=== PATIENT | male | born 1955 ===

== ENCOUNTER 2018-03-08 12:47 | Emergency (ER) | payer MEDICAID, OTHER ==
--- NOTE | 2018-03-08 13:51 | NUR ---
Attempted to call pt to rm and people in waiting rm informed this nurse the pt had left.
== END 2018-03-08 13:51 | disposition left against medical advice (07) ==
LOC: ER 12:49
DX: R07.81 Pleurodynia (principal); W19.XXXA Unspecified fall, initial encounter